=== PATIENT | female | born 1975 | race Caucasian/White ===

== ENCOUNTER 2017-03-03 16:11 | Emergency (ER) | payer OTHER ==
[2017-03-03 16:40] VITALS: BP 109/68
== END 2017-03-03 17:25 | disposition home or self-care (01) ==
LOC: ED 16:11
DX: L60.0 Ingrowing nail (principal); I10 Essential (primary) hypertension

== ENCOUNTER 2017-04-11 01:03 | Emergency (ER) | payer OTHER ==
[2017-04-11 02:35] VITALS: BP 142/91
== END 2017-04-11 02:35 | disposition home or self-care (01) ==
LOC: ED 01:03
DX: R30.0 Dysuria (principal); R30.9 Painful micturition, unspecified; R11.2 Nausea with vomiting, unspecified; G43.909 Migraine, unspecified, not intractable, without status migrainosus; Z90.49 Acquired absence of other specified parts of digestive tract

== ENCOUNTER 2018-07-17 20:58 | Emergency (ER) | payer OTHER ==
[2018-07-17 23:06] VITALS: BP 116/74
== END 2018-07-17 23:06 | disposition home or self-care (01) ==
LOC: ED 20:58
DX: R51 Headache (principal); G43.909 Migraine, unspecified, not intractable, without status migrainosus
CPT/HCPCS: J1885

== ENCOUNTER 2018-12-01 18:22 | Emergency (ER) | payer OTHER ==
[~2018-12-01] VITALS: Ht 167.6 cm; Wt 68.9 kg
[2018-12-01 18:43] VITALS: Ht 167.6 cm; Wt 68.9 kg
[2018-12-01 22:08] VITALS: BP 125/65
== END 2018-12-01 22:17 | disposition home or self-care (01) ==
LOC: ED 18:22
DX: G43.909 Migraine, unspecified, not intractable, without status migrainosus (principal); Z98.890 Other specified postprocedural states
CPT/HCPCS: J1200; J2765; J7030

== ENCOUNTER 2019-03-01 12:12 | Emergency (ER) | payer OTHER ==
[~2019-03-01] VITALS: Ht 165.1 cm; Wt 68.5 kg
[2019-03-01 12:14] VITALS: Ht 165.1 cm; Wt 68.5 kg
[2019-03-01 15:32] VITALS: BP 130/71
== END 2019-03-01 15:32 | disposition home or self-care (01) ==
LOC: ED 12:12
DX: G43.909 Migraine, unspecified, not intractable, without status migrainosus (principal); R11.10 Vomiting, unspecified; Z98.890 Other specified postprocedural states
CPT/HCPCS: J1200; J2765; J7030

== ENCOUNTER 2019-06-22 19:15 | Emergency (ER) | payer OTHER ==
[~2019-06-22] VITALS: Ht 165.1 cm; Wt 67.1 kg
[2019-06-22 19:38] VITALS: Ht 165.1 cm; Wt 67.1 kg
[2019-06-22 21:31] LABS: BASOPHIL % 0.4 % (0-2); PLATELET COUNT 246 x10^3mcL (130-400); RED CELL DISTRIBUTION WIDTH 13.4 % (11.5-14.5)
[2019-06-22 21:47] LABS: ALBUMIN 3.6 g/dL (3.4-5.0); ALKALINE PHOSPHATASE 74 U/L (46-116); ALT/SGPT 29 U/L (14-59); AST/SGOT 14 U/L (15-37); BILIRUBIN TOTAL 0.3 mg/dL (0.20-1.00); CARBON DIOXIDE 30.1 mmol/L (21-32); CHLORIDE SERUM 104 mmol/L (98-107); CREATININE SERUM 0.6 mg/dL (0.6-1.0); GFR1 > 60 mL/min; GLUCOSE SERUM 92 mg/dL (74-106); LIPASE 161 IU/L (73-393); POTASSIUM SERUM 3.6 mmol/L (3.5-5.1); SODIUM SERUM 142 mmol/L (136-145)
[2019-06-22 22:01] LABS: CALCIUM 8.4 mg/dL (8.5-10.1)
[2019-06-23 00:23] VITALS: BP 101/63
== END 2019-06-23 00:23 | disposition home or self-care (01) ==
LOC: ED 19:15
PROVIDERS: Emergency Medicine
DX: D25.9 Leiomyoma of uterus, unspecified (principal); Z90.49 Acquired absence of other specified parts of digestive tract; Z98.890 Other specified postprocedural states
CPT/HCPCS: J1885; J2405; J7030

== ENCOUNTER 2019-08-15 02:08 | Emergency (ER) | payer OTHER ==
[~2019-08-15] VITALS: Ht 160 cm; Wt 70.3 kg
[2019-08-15 02:13] VITALS: Ht 160 cm; Wt 70.3 kg
[2019-08-15 02:55] LABS: UA SPECIFIC GRAVITY <=1.005 (1.005-1.035); microscopic required? YES; urine erythrocyte 2+ (NEGATIVE)
[2019-08-15 02:58] VITALS: BP 135/71
== END 2019-08-15 02:58 | disposition home or self-care (01) ==
LOC: ED 02:08
PROVIDERS: Specialist
DX: N39.0 Urinary tract infection, site not specified (principal); G43.909 Migraine, unspecified, not intractable, without status migrainosus; Z98.890 Other specified postprocedural states

== ENCOUNTER 2019-09-14 18:05 | Emergency (ER) | payer OTHER ==
[~2019-09-14] VITALS: Ht 160 cm; Wt 68.0 kg
[2019-09-14 18:39] VITALS: Ht 160 cm; Wt 68.0 kg
[2019-09-15 00:32] VITALS: BP 100/55
== END 2019-09-15 00:32 | disposition home or self-care (01) ==
LOC: ED 18:05
DX: G43.909 Migraine, unspecified, not intractable, without status migrainosus (principal); Z98.890 Other specified postprocedural states
CPT/HCPCS: J1100; J1200; J1885; J2765; J7030